=== PATIENT | female | born 1975 | race Caucasian/White ===

== ENCOUNTER 2020-07-11 14:00 | Inpatient (IN) | payer MEDICAID ==
[~2020-07-11] VITALS: Ht 152.4 cm; Wt 90.7 kg
[~2020-07-11 14:00] MED LIST: AMLO-258 PO; ASPI-989 PO; ATOR20TA86 PO; DILT120C12 PO; DOCU-275 PO; POLY17PO PO; SENN-277 PO
[2020-07-11] MEDS ORDERED: ACET-3207 PO (14:01)
[2020-07-11] MEDS ORDERED: HYDR25TA84 PO (14:02)
[2020-07-11] MEDS ORDERED: MELA5TAB3 PO (14:04)
[2020-07-11 15:00] VITALS: BP 149/87
[2020-07-11] MEDS ORDERED: HydrALAZINE HCL 25 MG TABLET PO PRN (16:00)
[2020-07-11 21:09] VITALS: BP 154/87
[2020-07-11] MEDS: DOCUSATE SODIUM 100 MG CAPSULE PO SCH (21:22)
[2020-07-11] MEDS: DILTIAZEM HCL CD 120 MG ER CAPSULE PO SCH (21:22)
[2020-07-11] MEDS: ATORVASTATIN CALCIUM 20 MG TABLET PO SCH (21:22)
[2020-07-11] MEDS: SENNA 187 MG TABLET PO SCH (21:22)
[2020-07-11 23:13] VITALS: BP 149/80
[2020-07-12] MEDS: ACETAMINOPHEN 325 MG TABLET PO PRN ×2 (04:15→17:07)
[2020-07-12 07:01] VITALS: BP 147/83
[2020-07-12] MEDS: AmLODIPine BESYLATE 10 MG TABLET PO SCH (08:19)
[2020-07-12] MEDS: DILTIAZEM HCL CD 120 MG ER CAPSULE PO SCH ×2 (08:19→20:02)
[2020-07-12] MEDS: ASPIRIN 325 MG TABLET PO SCH (08:19)
[2020-07-12] MEDS: POLYETHYLENE GLYCOL 3350 17 GM PACKET PO SCH (08:19)
[2020-07-12] MEDS: DOCUSATE SODIUM 100 MG CAPSULE PO SCH ×2 (08:19→20:01)
[2020-07-12 15:13] VITALS: BP 130/67
[2020-07-12 17:07] VITALS: BP 136/82
[2020-07-12 20:00] VITALS: BP 140/86
[2020-07-12] MEDS: SENNA 187 MG TABLET PO SCH (20:02)
[2020-07-12] MEDS: ATORVASTATIN CALCIUM 20 MG TABLET PO SCH (20:02)
[2020-07-12] MEDS: MELATONIN 5 MG TABLET PO PRN (23:14)
[2020-07-12 23:31] VITALS: BP 128/78
[2020-07-13 07:15] VITALS: BP 155/96
[2020-07-13] MEDS: AmLODIPine BESYLATE 10 MG TABLET PO SCH (07:40)
[2020-07-13] MEDS: DOCUSATE SODIUM 100 MG CAPSULE PO SCH ×2 (07:40→20:52)
[2020-07-13] MEDS: DILTIAZEM HCL CD 120 MG ER CAPSULE PO SCH ×2 (07:40→20:53)
[2020-07-13] MEDS: POLYETHYLENE GLYCOL 3350 17 GM PACKET PO SCH (07:40)
[2020-07-13] MEDS: ASPIRIN 325 MG TABLET PO SCH (07:40)
[2020-07-13 12:55] VITALS: BP 142/86
[2020-07-13] MEDS: ACETAMINOPHEN 325 MG TABLET PO PRN (12:57)
[2020-07-13] MEDS: CLOPIDOGREL BISULFATE 75 MG TABLET PO SCH (12:57)
[2020-07-13] MEDS: HYDROCHLOROTHIAZIDE 25 MG TABLET PO SCH (12:58)
[2020-07-13 16:00] VITALS: BP 122/76
[2020-07-13 20:49] VITALS: BP 130/66
[2020-07-13] MEDS: SENNA 187 MG TABLET PO SCH (20:52)
[2020-07-13] MEDS: MELATONIN 5 MG TABLET PO PRN (20:52)
[2020-07-13] MEDS: ATORVASTATIN CALCIUM 40 MG TABLET PO SCH (20:53)
[2020-07-13 23:44] VITALS: BP 139/79
[2020-07-14 08:20] VITALS: BP 147/81
[2020-07-14] MEDS: ACETAMINOPHEN 325 MG TABLET PO PRN (08:21)
[2020-07-14] MEDS: POLYETHYLENE GLYCOL 3350 17 GM PACKET PO SCH ×2 (08:21→09:00)
[2020-07-14] MEDS: AmLODIPine BESYLATE 10 MG TABLET PO SCH (08:22)
[2020-07-14] MEDS: DOCUSATE SODIUM 100 MG CAPSULE PO SCH ×2 (08:22→20:04)
[2020-07-14] MEDS: CLOPIDOGREL BISULFATE 75 MG TABLET PO SCH (08:22)
[2020-07-14] MEDS: ASPIRIN 81 MG CHEWABLE TABLET PO SCH (08:22)
[2020-07-14] MEDS: HYDROCHLOROTHIAZIDE 25 MG TABLET PO SCH (08:22)
[2020-07-14] MEDS: DILTIAZEM HCL CD 120 MG ER CAPSULE PO SCH ×2 (08:24→20:03)
[2020-07-14 16:17] VITALS: BP 136/75
[2020-07-14 20:01] VITALS: BP 131/73
[2020-07-14] MEDS: SENNA 187 MG TABLET PO SCH (20:03)
[2020-07-14] MEDS: ATORVASTATIN CALCIUM 40 MG TABLET PO SCH (20:03)
[2020-07-14] MEDS: MELATONIN 5 MG TABLET PO PRN (20:04)
[2020-07-15] VITALS: BP 131/75
[2020-07-15 08:30] VITALS: BP 139/61
[2020-07-15] MEDS: ACETAMINOPHEN 325 MG TABLET PO PRN ×2 (08:30→17:31)
[2020-07-15] MEDS: ASPIRIN 81 MG CHEWABLE TABLET PO SCH (08:30)
[2020-07-15] MEDS: HYDROCHLOROTHIAZIDE 25 MG TABLET PO SCH (08:30)
[2020-07-15] MEDS: DOCUSATE SODIUM 100 MG CAPSULE PO SCH ×2 (08:31→20:11)
[2020-07-15] MEDS: CLOPIDOGREL BISULFATE 75 MG TABLET PO SCH (08:31)
[2020-07-15] MEDS: POLYETHYLENE GLYCOL 3350 17 GM PACKET PO SCH (08:31)
[2020-07-15] MEDS: DILTIAZEM HCL CD 120 MG ER CAPSULE PO SCH ×2 (08:31→20:11)
[2020-07-15] MEDS: AmLODIPine BESYLATE 10 MG TABLET PO SCH (08:32)
[2020-07-15 16:00] VITALS: BP_SYST 130; BP_SYST 230; BP_DIAS 67
[2020-07-15] MEDS: SENNA 187 MG TABLET PO SCH (20:11)
[2020-07-15] MEDS: ATORVASTATIN CALCIUM 40 MG TABLET PO SCH (20:11)
[2020-07-15] MEDS: MELATONIN 5 MG TABLET PO PRN (20:12)
[2020-07-15 20:14] VITALS: BP 119/67
[2020-07-16 00:19] VITALS: BP 127/74
[2020-07-16 07:45] VITALS: BP 130/76
[2020-07-16] MEDS: CLOPIDOGREL BISULFATE 75 MG TABLET PO SCH (07:47)
[2020-07-16] MEDS: AmLODIPine BESYLATE 10 MG TABLET PO SCH (07:47)
[2020-07-16] MEDS: DILTIAZEM HCL CD 120 MG ER CAPSULE PO SCH ×2 (07:47→20:34)
[2020-07-16] MEDS: HYDROCHLOROTHIAZIDE 25 MG TABLET PO SCH (07:47)
[2020-07-16] MEDS: ASPIRIN 81 MG CHEWABLE TABLET PO SCH (07:48)
[2020-07-16] MEDS: DOCUSATE SODIUM 100 MG CAPSULE PO SCH ×2 (07:48→20:34)
[2020-07-16] MEDS: POLYETHYLENE GLYCOL 3350 17 GM PACKET PO SCH (07:48)
[2020-07-16] MEDS: ACETAMINOPHEN 325 MG TABLET PO PRN ×2 (12:55→21:52)
[2020-07-16 16:00] VITALS: BP 118/69
[2020-07-16] MEDS: ATORVASTATIN CALCIUM 40 MG TABLET PO SCH (20:34)
[2020-07-16] MEDS: SENNA 187 MG TABLET PO SCH (20:34)
[2020-07-16 20:35] VITALS: BP 121/68
[2020-07-17 06:00] VITALS: BP 143/75
[2020-07-17 08:15] VITALS: BP 142/75
[2020-07-17] MEDS: DILTIAZEM HCL CD 120 MG ER CAPSULE PO SCH ×2 (08:32→20:16)
[2020-07-17] MEDS: ASPIRIN 81 MG CHEWABLE TABLET PO SCH (08:34)
[2020-07-17] MEDS: CLOPIDOGREL BISULFATE 75 MG TABLET PO SCH (08:34)
[2020-07-17] MEDS: DOCUSATE SODIUM 100 MG CAPSULE PO SCH ×2 (08:34→20:16)
[2020-07-17] MEDS: POLYETHYLENE GLYCOL 3350 17 GM PACKET PO SCH (08:34)
[2020-07-17] MEDS: HYDROCHLOROTHIAZIDE 25 MG TABLET PO SCH (08:34)
[2020-07-17] MEDS: AmLODIPine BESYLATE 10 MG TABLET PO SCH (08:34)
[2020-07-17 16:07] VITALS: BP 104/55
[2020-07-17] MEDS: SENNA 187 MG TABLET PO SCH (20:16)
[2020-07-17] MEDS: ACETAMINOPHEN 325 MG TABLET PO PRN (20:16)
[2020-07-17] MEDS: ATORVASTATIN CALCIUM 40 MG TABLET PO SCH (20:16)
[2020-07-17 21:20] VITALS: BP 131/82
[2020-07-18 02:30] VITALS: BP 113/60
[2020-07-18 08:30] VITALS: BP 121/70
[2020-07-18] MEDS: DOCUSATE SODIUM 100 MG CAPSULE PO SCH ×2 (08:42→20:37)
[2020-07-18] MEDS: AmLODIPine BESYLATE 10 MG TABLET PO SCH (08:42)
[2020-07-18] MEDS: ASPIRIN 81 MG CHEWABLE TABLET PO SCH (08:42)
[2020-07-18] MEDS: HYDROCHLOROTHIAZIDE 25 MG TABLET PO SCH (08:42)
[2020-07-18] MEDS: CLOPIDOGREL BISULFATE 75 MG TABLET PO SCH (08:42)
[2020-07-18] MEDS: DILTIAZEM HCL CD 120 MG ER CAPSULE PO SCH ×2 (08:42→20:37)
[2020-07-18] MEDS: POLYETHYLENE GLYCOL 3350 17 GM PACKET PO SCH (08:43)
[2020-07-18 16:35] VITALS: BP 118/75
[2020-07-18] MEDS: ATORVASTATIN CALCIUM 40 MG TABLET PO SCH (20:37)
[2020-07-18] MEDS: SENNA 187 MG TABLET PO SCH (20:38)
[2020-07-18] MEDS: ACETAMINOPHEN 325 MG TABLET PO PRN (22:43)
[2020-07-18] MEDS: MELATONIN 5 MG TABLET PO PRN (22:43)
[2020-07-18 23:43] VITALS: BP 126/67
[2020-07-19] MEDS: AmLODIPine BESYLATE 10 MG TABLET PO SCH (08:06)
[2020-07-19] MEDS: HYDROCHLOROTHIAZIDE 25 MG TABLET PO SCH (08:06)
[2020-07-19] MEDS: DOCUSATE SODIUM 100 MG CAPSULE PO SCH ×2 (08:07→21:54)
[2020-07-19] MEDS: DILTIAZEM HCL CD 120 MG ER CAPSULE PO SCH ×2 (08:07→21:54)
[2020-07-19] MEDS: POLYETHYLENE GLYCOL 3350 17 GM PACKET PO SCH (08:07)
[2020-07-19] MEDS: CLOPIDOGREL BISULFATE 75 MG TABLET PO SCH (08:07)
[2020-07-19] MEDS: ASPIRIN 81 MG CHEWABLE TABLET PO SCH (08:07)
[2020-07-19 10:27] VITALS: BP 124/65
[2020-07-19 16:00] VITALS: BP 121/70
[2020-07-19 21:53] VITALS: BP 122/71
[2020-07-19] MEDS: SENNA 187 MG TABLET PO SCH (21:54)
[2020-07-19] MEDS: ATORVASTATIN CALCIUM 40 MG TABLET PO SCH (21:54)
[2020-07-20 02:15] VITALS: BP 122/79
[2020-07-20] MEDS: ACETAMINOPHEN 325 MG TABLET PO PRN ×4 (02:15→20:30)
[2020-07-20] MEDS: ASPIRIN 81 MG CHEWABLE TABLET PO SCH (07:45)
[2020-07-20] MEDS: DILTIAZEM HCL CD 120 MG ER CAPSULE PO SCH ×2 (07:45→20:30)
[2020-07-20] MEDS: AmLODIPine BESYLATE 10 MG TABLET PO SCH (07:45)
[2020-07-20] MEDS: POLYETHYLENE GLYCOL 3350 17 GM PACKET PO SCH (07:45)
[2020-07-20] MEDS: DOCUSATE SODIUM 100 MG CAPSULE PO SCH ×2 (07:45→20:30)
[2020-07-20] MEDS: CLOPIDOGREL BISULFATE 75 MG TABLET PO SCH (07:45)
[2020-07-20] MEDS: HYDROCHLOROTHIAZIDE 25 MG TABLET PO SCH (07:45)
[2020-07-20 08:15] VITALS: BP 118/74
[2020-07-20 15:39] VITALS: BP 113/63
[2020-07-20 20:29] VITALS: BP 111/57
[2020-07-20] MEDS: SENNA 187 MG TABLET PO SCH (20:30)
[2020-07-20] MEDS: ATORVASTATIN CALCIUM 40 MG TABLET PO SCH (20:30)
[2020-07-21 02:47] VITALS: BP 116/70
[2020-07-21] MEDS: ACETAMINOPHEN 325 MG TABLET PO PRN ×2 (02:47→08:38)
[2020-07-21] MEDS: DILTIAZEM HCL CD 120 MG ER CAPSULE PO SCH ×2 (08:37→20:14)
[2020-07-21 08:38] VITALS: BP 125/86
[2020-07-21] MEDS: CLOPIDOGREL BISULFATE 75 MG TABLET PO SCH (08:38)
[2020-07-21] MEDS: POLYETHYLENE GLYCOL 3350 17 GM PACKET PO SCH (08:38)
[2020-07-21] MEDS: AmLODIPine BESYLATE 10 MG TABLET PO SCH (08:38)
[2020-07-21] MEDS: DOCUSATE SODIUM 100 MG CAPSULE PO SCH ×2 (08:38→20:14)
[2020-07-21] MEDS: HYDROCHLOROTHIAZIDE 25 MG TABLET PO SCH (08:38)
[2020-07-21] MEDS: ASPIRIN 81 MG CHEWABLE TABLET PO SCH (08:38)
[2020-07-21 18:26] VITALS: BP 138/80
[2020-07-21] MEDS: ATORVASTATIN CALCIUM 40 MG TABLET PO SCH (20:14)
[2020-07-21] MEDS: SENNA 187 MG TABLET PO SCH (20:14)
[2020-07-22 05:15] VITALS: BP 120/59
[2020-07-22] MEDS: HYDROCHLOROTHIAZIDE 25 MG TABLET PO SCH (08:18)
[2020-07-22] MEDS: AmLODIPine BESYLATE 10 MG TABLET PO SCH (08:18)
[2020-07-22] MEDS: ASPIRIN 81 MG CHEWABLE TABLET PO SCH (08:18)
[2020-07-22 08:19] VITALS: BP 126/71
[2020-07-22] MEDS: DILTIAZEM HCL CD 120 MG ER CAPSULE PO SCH ×2 (08:19→20:16)
[2020-07-22] MEDS: ACETAMINOPHEN 325 MG TABLET PO PRN (08:19)
[2020-07-22] MEDS: DOCUSATE SODIUM 100 MG CAPSULE PO SCH ×2 (08:19→20:15)
[2020-07-22] MEDS: POLYETHYLENE GLYCOL 3350 17 GM PACKET PO SCH (08:19)
[2020-07-22] MEDS: CLOPIDOGREL BISULFATE 75 MG TABLET PO SCH (08:19)
[2020-07-22 16:16] VITALS: BP 109/72
[2020-07-22 20:14] VITALS: BP 134/73
[2020-07-22] MEDS: SENNA 187 MG TABLET PO SCH (20:16)
[2020-07-22] MEDS: ATORVASTATIN CALCIUM 40 MG TABLET PO SCH (20:16)
[2020-07-23 06:05] VITALS: BP 122/86
[2020-07-23] MEDS: ACETAMINOPHEN 325 MG TABLET PO PRN (06:05)
[2020-07-23 08:15] VITALS: BP 118/72
[2020-07-23] MEDS: HYDROCHLOROTHIAZIDE 25 MG TABLET PO SCH (08:26)
[2020-07-23] MEDS: AmLODIPine BESYLATE 10 MG TABLET PO SCH (08:27)
[2020-07-23] MEDS: DILTIAZEM HCL CD 120 MG ER CAPSULE PO SCH ×2 (08:27→20:22)
[2020-07-23] MEDS: POLYETHYLENE GLYCOL 3350 17 GM PACKET PO SCH (08:27)
[2020-07-23] MEDS: DOCUSATE SODIUM 100 MG CAPSULE PO SCH ×2 (08:27→20:21)
[2020-07-23] MEDS: CLOPIDOGREL BISULFATE 75 MG TABLET PO SCH (08:27)
[2020-07-23] MEDS: ASPIRIN 81 MG CHEWABLE TABLET PO SCH (08:27)
[2020-07-23 16:01] VITALS: BP 118/67
[2020-07-23] MEDS: ATORVASTATIN CALCIUM 40 MG TABLET PO SCH (20:22)
[2020-07-23] MEDS: SENNA 187 MG TABLET PO SCH (20:22)
[2020-07-23 20:24] VITALS: BP 123/50
[2020-07-23 20:38] VITALS: BP 123/70
[2020-07-24 02:25] VITALS: BP 123/72
[2020-07-24] MEDS: ACETAMINOPHEN 325 MG TABLET PO PRN (02:25)
[2020-07-24 08:50] VITALS: BP 117/65
[2020-07-24] MEDS: ASPIRIN 81 MG CHEWABLE TABLET PO SCH (08:50)
[2020-07-24] MEDS: CLOPIDOGREL BISULFATE 75 MG TABLET PO SCH (08:50)
[2020-07-24] MEDS: HYDROCHLOROTHIAZIDE 25 MG TABLET PO SCH (08:50)
[2020-07-24] MEDS: DOCUSATE SODIUM 100 MG CAPSULE PO SCH ×2 (08:50→20:25)
[2020-07-24] MEDS: POLYETHYLENE GLYCOL 3350 17 GM PACKET PO SCH (08:51)
[2020-07-24] MEDS: AmLODIPine BESYLATE 10 MG TABLET PO SCH (08:51)
[2020-07-24] MEDS: DILTIAZEM HCL CD 120 MG ER CAPSULE PO SCH ×2 (08:51→20:25)
[2020-07-24 16:00] VITALS: BP 120/69
[2020-07-24 20:24] VITALS: BP 137/75
[2020-07-24] MEDS: ATORVASTATIN CALCIUM 40 MG TABLET PO SCH (20:25)
[2020-07-24] MEDS: SENNA 187 MG TABLET PO SCH (20:25)
[2020-07-25 03:47] VITALS: BP 134/72
[2020-07-25 08:05] VITALS: BP 122/75
[2020-07-25] MEDS: ASPIRIN 81 MG CHEWABLE TABLET PO SCH (08:06)
[2020-07-25] MEDS: CLOPIDOGREL BISULFATE 75 MG TABLET PO SCH (08:06)
[2020-07-25] MEDS: DILTIAZEM HCL CD 120 MG ER CAPSULE PO SCH ×2 (08:06→20:10)
[2020-07-25] MEDS: POLYETHYLENE GLYCOL 3350 17 GM PACKET PO SCH (08:06)
[2020-07-25] MEDS: HYDROCHLOROTHIAZIDE 25 MG TABLET PO SCH (08:06)
[2020-07-25] MEDS: DOCUSATE SODIUM 100 MG CAPSULE PO SCH ×2 (08:06→20:10)
[2020-07-25] MEDS: AmLODIPine BESYLATE 10 MG TABLET PO SCH (08:06)
[2020-07-25 10:15] LABS: ANION GAP 9 mmol/L (8-16); CALCIUM, TOTAL 9.1 mg/dL (8.8-10.5); CARBON DIOXIDE 26 mmol/L (22-29); CHLORIDE 102 mmol/L (98-107); CREATININE 0.66 mg/dL (0.60-1.30); GLOMERULAR FILTR. RATE CALC > 60 mL/min (>60); GLUCOSE,RANDOM 132 mg/dL (70-110); POTASSIUM 3.2 mmol/L (3.5-5.1); SODIUM SERUM 137 mmol/L (136-145); UREA NITROGEN, BLOOD 14 mg/dL (7-18)
[2020-07-25] MEDS: ACETAMINOPHEN 325 MG TABLET PO PRN (10:56)
[2020-07-25] MEDS ORDERED: POTASSIUM CHLORIDE 10 MEQ ER TABLET PO ONE (11:15)
[2020-07-25 16:03] VITALS: BP 113/72
[2020-07-25] MEDS: ATORVASTATIN CALCIUM 40 MG TABLET PO SCH (20:10)
[2020-07-25] MEDS: SENNA 187 MG TABLET PO SCH (20:10)
[2020-07-25 20:12] VITALS: BP 134/85
[2020-07-26 03:19] VITALS: BP 126/65
[2020-07-26] MEDS: CLOPIDOGREL BISULFATE 75 MG TABLET PO SCH (07:28)
[2020-07-26] MEDS: HYDROCHLOROTHIAZIDE 25 MG TABLET PO SCH (07:28)
[2020-07-26] MEDS: ASPIRIN 81 MG CHEWABLE TABLET PO SCH (07:28)
[2020-07-26] MEDS: AmLODIPine BESYLATE 10 MG TABLET PO SCH (07:28)
[2020-07-26] MEDS: DILTIAZEM HCL CD 120 MG ER CAPSULE PO SCH ×2 (07:28→20:06)
[2020-07-26] MEDS: POLYETHYLENE GLYCOL 3350 17 GM PACKET PO SCH (07:28)
[2020-07-26] MEDS: DOCUSATE SODIUM 100 MG CAPSULE PO SCH ×2 (07:28→20:06)
[2020-07-26 09:12] VITALS: BP 134/78
[2020-07-26] MEDS: ACETAMINOPHEN 325 MG TABLET PO PRN (09:12)
[2020-07-26 16:35] VITALS: BP 132/75
[2020-07-26] MEDS: ATORVASTATIN CALCIUM 40 MG TABLET PO SCH (20:06)
[2020-07-26] MEDS: SENNA 187 MG TABLET PO SCH (20:06)
[2020-07-27] MEDS: MELATONIN 5 MG TABLET PO PRN (00:52)
[2020-07-27 01:00] VITALS: BP 111/70
[2020-07-27 07:01] VITALS: BP 120/71
[2020-07-27] MEDS: CLOPIDOGREL BISULFATE 75 MG TABLET PO SCH (07:34)
[2020-07-27] MEDS: POLYETHYLENE GLYCOL 3350 17 GM PACKET PO SCH (07:34)
[2020-07-27] MEDS: HYDROCHLOROTHIAZIDE 25 MG TABLET PO SCH (07:34)
[2020-07-27] MEDS: AmLODIPine BESYLATE 10 MG TABLET PO SCH (07:34)
[2020-07-27] MEDS: DILTIAZEM HCL CD 120 MG ER CAPSULE PO SCH ×2 (07:34→20:05)
[2020-07-27] MEDS: ASPIRIN 81 MG CHEWABLE TABLET PO SCH (07:34)
[2020-07-27] MEDS: DOCUSATE SODIUM 100 MG CAPSULE PO SCH ×2 (07:34→20:03)
[2020-07-27 15:49] VITALS: BP 124/75
[2020-07-27] MEDS: SENNA 187 MG TABLET PO SCH (20:03)
[2020-07-27] MEDS: ATORVASTATIN CALCIUM 40 MG TABLET PO SCH (20:03)
[2020-07-27] MEDS: ACETAMINOPHEN 325 MG TABLET PO PRN (20:03)
[2020-07-27 20:06] VITALS: BP 131/81
[2020-07-27] MEDS ORDERED: AMLO-258 PO (23:59)
[2020-07-27] MEDS ORDERED: POLY17PO47 PO (23:59)
[2020-07-27] MEDS ORDERED: HYDR-1475 PO (23:59)
[2020-07-27] MEDS ORDERED: ATOR40TA28 PO (23:59)
[2020-07-27] MEDS ORDERED: DOCU-275 PO (23:59)
[2020-07-27] MEDS ORDERED: DILT120C88 PO (23:59)
[2020-07-27] MEDS ORDERED: CLOP-31 PO (23:59)
[2020-07-27] MEDS ORDERED: ASPI-728 PO (23:59)
[2020-07-28 02:00] VITALS: BP 107/60
[2020-07-28 08:06] VITALS: BP 126/75
[2020-07-28] MEDS: DILTIAZEM HCL CD 120 MG ER CAPSULE PO SCH ×2 (08:55→21:06)
[2020-07-28] MEDS: DOCUSATE SODIUM 100 MG CAPSULE PO SCH ×2 (08:55→21:07)
[2020-07-28] MEDS: AmLODIPine BESYLATE 10 MG TABLET PO SCH (08:55)
[2020-07-28] MEDS: HYDROCHLOROTHIAZIDE 25 MG TABLET PO SCH (08:55)
[2020-07-28] MEDS: CLOPIDOGREL BISULFATE 75 MG TABLET PO SCH (08:55)
[2020-07-28] MEDS: ACETAMINOPHEN 325 MG TABLET PO PRN (08:55)
[2020-07-28] MEDS: ASPIRIN 81 MG CHEWABLE TABLET PO SCH (08:55)
[2020-07-28] MEDS: POLYETHYLENE GLYCOL 3350 17 GM PACKET PO SCH (08:56)
[2020-07-28 16:00] VITALS: BP 130/68
[2020-07-28 21:05] VITALS: BP 116/63
[2020-07-28] MEDS: SENNA 187 MG TABLET PO SCH (21:06)
[2020-07-28] MEDS: ATORVASTATIN CALCIUM 40 MG TABLET PO SCH (21:06)
[2020-07-29 02:50] VITALS: BP 100/65
[2020-07-29] MEDS: ACETAMINOPHEN 325 MG TABLET PO PRN (03:53)
[2020-07-29] MEDS: ASPIRIN 81 MG CHEWABLE TABLET PO SCH (07:48)
[2020-07-29] MEDS: DOCUSATE SODIUM 100 MG CAPSULE PO SCH (07:48)
[2020-07-29] MEDS: DILTIAZEM HCL CD 120 MG ER CAPSULE PO SCH (07:48)
[2020-07-29] MEDS: HYDROCHLOROTHIAZIDE 25 MG TABLET PO SCH (07:49)
[2020-07-29] MEDS: AmLODIPine BESYLATE 10 MG TABLET PO SCH (07:49)
[2020-07-29] MEDS: CLOPIDOGREL BISULFATE 75 MG TABLET PO SCH (07:49)
[2020-07-29] MEDS: POLYETHYLENE GLYCOL 3350 17 GM PACKET PO SCH (07:51)
[2020-07-29 09:08] VITALS: BP 125/77
== END 2020-07-29 11:30 | disposition home or self-care (01) | DRG 58 ==
LOC: 2WR 14:00 → UNDOADMIN 14:00
PROVIDERS: ADMIT Physical Medicine & Rehabilitation; ATTEND Physical Medicine & Rehabilitation
DX: I69.351 Hemiplegia and hemiparesis following cerebral infarction affecting right dominant side (principal); I63.9 Cerebral infarction, unspecified; I10 Essential (primary) hypertension; E66.9 Obesity, unspecified; D64.9 Anemia, unspecified
CPT/HCPCS: 84132; 92507; 92508; 99366